=== PATIENT | female | born 1955 | race Caucasian/White ===

== ENCOUNTER 2024-09-05 06:35 | Day surgery (SDC) | payer MEDICARE, MEDICAID, SELFPAY ==
--- NOTE | 2024-09-02 07:00 | EKG_ITS ---
[facility] Test Date: 2024-09-02 Pat Name: RICHY VELA Department: Room: - Gender: Female [employer] Box Machine Operator: ARETHA : 1955 Requested By: Sophie Larios Order Number: [id number] Reading MD: Sophie Larios Measurements Intervals [place] Rate: 80 P: 50 SC: 177 QRS: -30 QRSD: 86 T: 61 QT: 368 QTc: 425 Interpretive Statements SINUS RHYTHM POSSIBLE ANTERIOR MYOCARDIAL INFARCTION , PROBABLY OLD Compared to ECG 11/15/2023 08:44:17 Myocardial infarct finding now present /store/S0/[id number]
[2024-09-02 11:11] LABS: Basophils % (Auto) 1 % (0-2.5); Eosinophils % (Auto) 1 % (0-10); Hematocrit 36.4 % (36.0-46.0); Hemoglobin 12.3 g/dL (12.0-16.0); Immature Granulocytes % (Auto) 0 % (0-0); Immature Granulocytes Auto 0.02 Thou/mm3 (0.00-0.00); Lymphocytes # (Auto) 2.5 Thou/mm3 (1.0-4.8); Lymphocytes % (Auto) 39 % (10-50); Mean Corpuscular HGB Conc 33.8 g/dl (31.0-37.0); Mean Corpuscular Hemoglobin 30.4 pg (25.0-35.0); Mean Corpuscular Volume 90 fL (80-100); Monocytes # (Auto) 0.5 Thou/mm3 (0.0-0.8); Monocytes % (Auto) 8 % (0-12); Neutrophils # (Auto) 3.3 Thou/mm3 (1.8-7.7); Neutrophils % (Auto) 52 % (37-80); Nucleated Red Blood Cell % 0 /100 WBC (0); Platelet Count 244 Thou/mm3 (140-440); Red Blood Count 4.05 Miln/mm3 (4.00-5.20); White Blood Count 6.3 Thou/mm3 (3.6-11.0)
[2024-09-02 11:14] LABS: Anion Gap 5 (7-16); BUN/Creatinine Ratio 10 Ratio (12-20); Blood Urea Nitrogen 14 mg/dL (9-23); Calcium 9.8 mg/dL (8.3-10.6); Carbon Dioxide 27.4 mMol/L (20.0-31.0); Chloride 104 mMol/L (98-107); Creatinine (Component) 1.4 mg/dL (0.6-1.3); Glucose 117 mg/dL (74-106); Osmolality,Calculated 273 (275-295); Potassium 4.7 mMol/L (3.4-5.1); Sodium 136 mMol/L (136-145); eGFR 41 See Note
[2024-09-02 11:16] LABS: Partial Thromboplastin Time 29.9 Seconds (22.0-36.0)
[2024-09-05] VITALS (11 sets, daily range): BP systolic 100–132; BP diastolic 48–85; PULSE 51–74; RESP 14–23; TEMP 36.1–36.6; O2SAT 95–100; BMI 32.2
--- NOTE | 2024-09-05 09:52 | ESOP_ITS ---
RE: RICHY VELA : 1955 DATE OF OPERATION: 09/05/2024 PROCEDURE PERFORMED: 1. Diagnostic left heart cardiac catheterization, selective coronary angiogram, left ventricular angiogram, CPT 27653. 2. PCI, PTCA stent placement proximal left circumflex artery, placement of drug-eluting stent. Preprocedure stenosis 90% and postprocedure 0%. YANI flow preprocedure 3, postprocedure 3. 3. Ultrasound-guided access right radial artery. 4. Conscious sedation for 30-minute duration. DIAGNOSES: Coronary artery disease, angina pectoris, abnormal stress test. HISTORY AND INDICATIONS: The patient is a 68-year-old lady with a history of hypertension, and multiple risk factors, CAD, has recurrent episodes of chest tightness, shortness of breath, classic_ angina pectoris, on medical management. Nuclear scan stress test was abnormal, hence coronary angiogram was recommended to assess the patient is a candidate for intervention, PCI. DESCRIPTION OF PROCEDURE: The patient was brought to cardiac catheterization lab where she was given 2 mg Versed and 50 mcg fentanyl for sedation. The right radial approach was taken. The right radial artery was cannulated by micropuncture technique. 5-Kinyarwanda Glidesheath introduced. A 5-Kinyarwanda TIG-4 diagnostic catheter was used to perform selective right and left coronary angiogram, left heart catheterization, left ventricular angiogram. Diagnostic procedure showed the following findings: Left ventricular angiogram showed normal left ventricular wall motion, ejection fraction 60%. HEMODYNAMICS: Left ventricular pressure 90/10, aortic pressure 90/70, no gradient across the aortic valve. Coronary angiogram showed following: Right coronary artery is large and dominant, appeared normal. No significant stenosis, gives off posterior descending branch. Left coronary system: Left main coronary artery is normal. There is calcification of the distal segment. Left anterior descending artery showed mild calcification, mild atherosclerotic plaque. No significant stenosis. Ramus intermedius is normal. Circumflex artery gives a very large obtuse marginal branch. Proximal circumflex artery showed a 90% discrete eccentric stenosis culprit lesion. Following diagnostic procedure, intervention was undertaken. The patient was given IV heparin. Radial cocktail was given 3000 units and additional 3000 units of heparin given, ACT 366, aspirin 325 mg since Brilinta 180 mg loading dose given. PCI undertaken. A 5-Kinyarwanda FL3.5 guiding catheter used to cannulate the left main coronary artery. A 0.014 Runthrough guidewire was used to cross the lesion successfully. A 2.5 x 12 mm NC balloon was used to dilate the lesion with 12 atmosphere pressure. After pre-dilating, 3.0 x 16 mm Synergy stent was deployed proximal circumflex artery. Final angiogram showed widely patent circumflex artery. No residual stenosis. SUMMARY OF FINDINGS AND SUGGESTIONS: Single vessel coronary artery disease, evidence of 90% stenosis of proximal circumflex artery, underwent successful PCI stent placement with drug-eluting stent, 3.0 x 16 mm Synergy stent deployment. Preprocedure stenosis 90% and postprocedure 0%. Preprocedure YANI flow 3, postprocedure YANI flow 3. COMPLICATIONS: None. TR band was applied. Hemostasis was secured. RECOMMENDATIONS: The patient was discharged home on aspirin and Brilinta. Follow as an outpatient in 1 week. DT: 08:54:31 TT: 09:46:00 Ref: [id number] - TID: [id number] [facility]
== END 2024-09-05 12:30 | disposition home or self-care (01) ==
PROVIDERS: PCP Nurse Practitioner Family; Referring Provider Internal Medicine Cardiovascular Disease; Visit Provider Internal Medicine Cardiovascular Disease
PROC: (CPT 93458; principal; 2024-09-05 07:30)
DX: I25.118 Atherosclerotic heart disease of native coronary artery with other forms of angina pectoris (principal); Z01.810 Encounter for preprocedural cardiovascular examination; I10 Essential (primary) hypertension
CPT/HCPCS: 93458; C9600; 36415; 80048; 85025; 85347; 85610; 85730; 93005; 99152; 99153; A4649; C1725; C1769; C1874; C1887; C1894; J0171; J0461; J1643; J2250; J2310; J2371; J3010; J3490; Q9967; A9270; J1644; J2305